=== PATIENT | female | born 1980 | race Two or more races ===

== ENCOUNTER → 2017-12-02 | Outpatient (CLI) | payer OTHER | LOC: FIMAGING 07:37 | PROVIDERS: ATTEND Advanced Practice Midwife | DX: O09.522 Supervision of elderly multigravida, second trimester (principal); Z3A.19 19 weeks gestation of pregnancy ==

== ENCOUNTER 2018-04-28 16:15 | Inpatient (IN) | payer OTHER ==
[2018-04-28] MEDS ORDERED: EPSOM SALT 454 GM TP PRN (18:21)
[2018-04-28] MEDS ORDERED: IBUPROFEN 600 MG TAB PO PRN (18:21)
[2018-04-28] MEDS ORDERED: TERBUTALINE SULFATE 1 MG/ML VIAL IV PRN (18:21)
[2018-04-28] MEDS ORDERED: OLIVE OIL 118 ML BTL MISC PRN (18:21)
[2018-04-28] MEDS ORDERED: LIDOCAINE 1% 300 MG/30 ML SDV SC PRN (18:21)
[2018-04-28] MEDS ORDERED: AMMONIA AROMATIC 1 EACH AMP IH PRN (18:21)
[2018-04-28] MEDS ORDERED: LR 500 ML IV PRN (18:21)
[2018-04-28] MEDS ORDERED: OXYTOCIN/RINGERS LACTATE 1,000 ML IV PRN (18:21)
[2018-04-28] MEDS ORDERED: LR 1,000 ML IV PRN (18:21)
[2018-04-28] MEDS ORDERED: MISOPROSTOL 200 MCG TAB PO PRN (18:21)
[2018-04-28] MEDS ORDERED: OXYTOCIN/RINGERS LACTATE 500 ML IV SCH (18:30)
--- NOTE | 2018-04-28 18:42 | PDGENHP ---
History and Physical History and Physical: Care: [facility] HPI: Patient is a 37 yo G 2 P 1 @ 40.6 weeks that presents to L&D, transferring in for an induction of labor after BPP came back 10/17 (-2 for breathing and -2 for AUGUSTO) as well as oligohydramnios with total AUGUSTO 3.7. NST had been reactive. EDC: 04/22/2018 which is based on LMP: 07/16/2017 which is known and consistent with Ultrasound at 20 weeks. Her is complicated by: AMA Review of Systems: Constitutional: Denies any fever, chills, or fatigue HEENT: denies any visual changes, difficulty swallowing, hearing loss Cardiovascular: Denies any chest pain, palpitations, leg swelling Respiratory: denies any cough, wheezing, or shortness of breathe GI: Denies any nausea, vomiting, diarrhea, constipation : denies any dysuria, urgency, frequency, vaginal bleeding Musculoskeletal: denies any muscle or bone pain Skin: denies any rashes Neuro: denies any headache, seizures, lightheadedness, dizziness, or loss of consciousness Psychiatric: denies any depression, anxiety, or SI/HI thoughts HISTORY: Previous OB history: hx of precipitous with first baby Past medical history: none Past surgical history: [ ] Social: Denies any alcohol, tobacco, or drug use. Family history: Father of melanoma/brain cancer; brother hx of anxiety/ depression Medications: PNV Allergies (list reaction): Codeine LABS: Rh: O+ ABS: Neg Rubella: Immune HbsAg: NR HIV: NR VDRL: NR 1hr: 92 GC: Neg Chlamydia: Neg Pap: Normal - 01/2016 GBS: neg BMI: (prepreg)22 PHYSICAL EXAM: Constitutional: WN, A&Ox3 HEENT: normocephalic atraumatic, supple Skin: Warm, dry, intact Heart: RRR, no murmur Chest: CTA-B Abdomen: Soft, nontender, gravid SVE:4/80/-2 Extremities: negedema, negative homans sign Neuro: grossly normal Psych: normal affect assessment: FHT baseline 115 to 120 +accels, occasional variable moderate variability Contractions: irregular Assessment: 1) 37 yo G 2 P 1 with IUP@ 40.6 2) Oligohydramnios 3) GBS neg 4) Overall Cat 1 FHR tracing Plan: 1) Admit to L&D 2) Pitocin induction per protocol 3) Anticipate Today's visit was approximately 30 min, of which >50% of the visit, was spent face to face with pt on direct counseling/coordination of care.
[2018-04-28 19:51] LABS: PLATELET COUNT 150 10^3/uL (150-400)
[2018-04-28] MEDS ORDERED: LIDOCAINE 1% 300 MG/30 ML SDV ONE (23:25)
[2018-04-28] MEDS ORDERED: AMMONIA AROMATIC 1 EACH AMP IH ONE (23:25)
[2018-04-28] MEDS ORDERED: MISOPROSTOL 200 MCG TAB ONE (23:25)
[2018-04-28] MEDS ORDERED: OXYTOCIN 10 UNIT/ML VIAL ONE (23:25)
[2018-04-28] MEDS ORDERED: OLIVE OIL 118 ML BTL ONE (23:25)
--- NOTE | 2018-04-28 23:52 | OBDEL ---
Info Type: Vaginal Presentation at Delivery: Vertex L&D Analgesia/Anesthesia Type: None GBS+: No Indications for Delivery: Oligohydramnios Vaginal Delivery - Delivery Provider Delivery Physician/CNM: Daisy Campo - Labor and Delivery Onset of Contractions Date: 04/28/18 Onset of Contractions Time: 23:15 Onset of Contractions Type: Induced Rupture of Membranes Date: 04/28/18 Rupture of Membranes Time: 23:20 Rupture of Membranes Type: Spontaneous Amniotic Fluid Color: Clear Dilation Complete Date: 04/28/18 Dilation Complete Time: 23:30 Placenta Delivery Date: 04/28/18 Placenta Delivery Time: 23:40 Total Hours of Labor: 0 Vaginal Sponge Count Correct: Yes Vaginal Needle Count Correct: Yes Vaginal Sweep Performed: Yes EBL: 200 Delivery Events: None Delivery Comment: Pt requested getting into the tub when having some mild discomfort from contractions. [place] water break in the tub. Assisted to the bed, was in hands and knees position and gently breathed baby to . Perineal support given while mom caught her own baby in a kneeling position and brought baby to the chest. Assisted to a side lying position. Placenta delivered complete with a three vessel cord and intact membranes. The cord was clamped x 2 and cut by the FOB. The perineum was examined and found to be intact. Fundus massaged firm, bleeding minimal. - Medications Labor Augmentation/Induction Methods Used: Pitocin Labor Augmentation/Induction Indication: Other (Specify) (oligohydramnios) Data DEACON: 04/22/18 Gestational Age: 40 week(s) and 6 day(s) ICD10 Worksheet Patient Problems: Problems Problem Status Onset Advanced maternal age in multigravida Acute Encounter for full-term uncomplicated delivery Acute Oligohydramnios Acute - ICD10 Problem Qualifiers (1) Encounter for full-term uncomplicated delivery
[2018-04-29] MEDS ORDERED: ACETAMINOPHEN 325 MG TAB PO SCH (00:15)
[2018-04-29] MEDS ORDERED: IBUPROFEN 600 MG TAB PO SCH (06:04)
[2018-04-29 08:57] VITALS: BP 111/70
--- NOTE | 2018-04-29 10:32 | OBGCSDC ---
General Delivery Information - General Info : 2 Para: 2 Abortions: 0 Type: Vaginal L&D Analgesia/Anesthesia Type: None Admission Date: 04/28/18 Labs: Patient ABO/Rh O POSITIVE 04/28/18 19:40 Hct 37.8 % (38.0-47.0) L 04/28/18 19:40 - Hospital Course : 04/29/18 10:30 Normal PP progress. Breast feeding well. Denies pain, minimal bleeding. Voiding with no problem. Plan d/c home today if baby is discharged. Vaginal - Delivery Provider Delivery Physician/CNM: Daisy Campo - Diagnosis Labor: Induced Rupture of Membranes Type: Spontaneous Amniotic Fluid Color: Clear Delivery Events: None - Delivery EBL: 200 [place] Data DEACON: 04/22/18 Gestational Age: 41 week(s) and 0 day(s) Munoz Delivery Date: 04/28/19 Delivery Time: 23:25 [place] Weight (gm): 3352 g Discharge Information - Discharge Information Instruction/Follow Up: Two Weeks
== END 2018-04-29 14:45 | disposition home or self-care (01) | DRG 807 ==
LOC: FLD 16:15 → FOB 04-29 01:11
PROVIDERS: ADMIT Advanced Practice Midwife; ATTEND Advanced Practice Midwife
PROC: 10E0XZZ Delivery of Products of Conception, External Approach (ICD-10-PCS; principal; 2018-04-28)
DX: O41.03X0 Oligohydramnios, third trimester, not applicable or unspecified (principal); Z37.0 Single live birth; Z3A.40 40 weeks gestation of pregnancy
CPT/HCPCS: J2590

== ENCOUNTER → 2018-04-28 | Outpatient (CLI) | payer OTHER | LOC: FIMAGING 14:42 | PROVIDERS: ATTEND Advanced Practice Midwife | DX: O09.523 Supervision of elderly multigravida, third trimester (principal); Z3A.40 40 weeks gestation of pregnancy ==